=== PATIENT | male | born 2000 ===

== ENCOUNTER 2023-08-29 11:41 | Emergency (ER) | payer SELFPAY ==
[2023-08-29 12:06] VITALS: BP 146/95; PULSE 87; RESP 20; TEMP 36.1; O2SAT 100
--- NOTE | 2023-08-29 14:53 | PC.NURSE ---
called for room, not in lobby
== END 2023-08-29 15:20 | disposition left against medical advice (07) ==
LOC: ANHED 15:08
DX: R22.0 Localized swelling, mass and lump, head (principal)
CPT/HCPCS: 99199